=== PATIENT | male | born 1995 | race Caucasian/White ===

== ENCOUNTER 2020-10-21 08:04 | Emergency (ER) | payer OTHER ==
--- NOTE | 2020-10-21 08:38 | ED Physician Documentation ---
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 He has not had a discharge he is not concerned about the possibility of STD. He has not had this happen previously. He does not feel there is any significant swelling to the testicle.He feels a constant dull ache to the right testicle like he was hit in the testicles and this does not go away. Review of Systems Constitutional: denies: Fever Ears: denies: Ear pain Nose: denies: Congestion Throat: denies: Sore throat Respiratory: denies: Cough GI: reports: Abdominal Pain. denies: Nausea, Vomiting, Constipation, Diarrhea : reports: Testicular pain. denies: Dysuria, Frequency, Discharge, Testicular mass Skin: denies: Rash Musculoskeletal: denies: Neck pain, Back pain, Extremity pain Neurologic: denies: Generalized weakness, Focal weakness, Numbness PD PAST MEDICAL HISTORY - Present Medications Home Medications: Ambulatory Orders Medication Instructions Recorded Confirmed No Known Home Medications 10/21/20 10/21/20 - Allergies Allergies/Adverse Reactions: Allergies Allergy/AdvReac Type Severity Reaction Status Date / Time No Known Drug Allergies Allergy Verified 10/21/20 08:22 PD ED PE NORMAL - Vitals Vital signs reviewed: Yes (Normal) - General General: Alert and oriented X 3, No acute distress, Well developed/nourished - HEENT HEENT: Atraumatic, PERRL, EOMI - Respiratory Respiratory: No respiratory distress - Male Male : Other (Right testicle is without significant swelling it is tender I did attempt to detorsed the testicle which did not result in resolution of symptoms. 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, No motor deficit, No sensory deficit, Normal speech Eye Opening: Spontaneous Motor: Obeys Commands Verbal: Oriented GCS Score: 15 - Psych Psych: Normal mood, Normal affect Results - Vitals Vitals: Vital Signs - 24 hr 10/21/20 10/21/20 10/21/20 08:20 09:01 09:30 Temperature 36.7 C 36.6 C 36.6 C Heart Rate 54 L 58 L 49 L Respiratory 20 19 12 Rate Blood Pressure 124/71 124/70 114/67 O2 Saturation 100 100 99 10/21/20 10/21/20 10/21/20 10:00 10:30 11:00 Temperature Heart Rate 56 L 47 L 52 L Respiratory 16 16 14 Rate Blood Pressure 113/60 111/63 100/48 L O2 Saturation 99 98 96 10/21/20 10/21/20 11:30 12:00 Temperature 36.5 C Heart Rate 52 L 52 L Respiratory 14 12 Rate Blood Pressure 100/48 L 103/65 O2 Saturation 99 98 Oxygen O2 Source Room air - Rads (name of study) testicular ultrasound Radiology: Prelim report reviewed (Impression: No findings of testicular torsion or testicular mass. Small left varicocele. Trace bilateral hydroceles.), EMP read indepedently, See rad report PD MEDICAL DECISION MAKING - ED course Complexity details: reviewed results, re-evaluated patient, considered differential, d/w patient ED course: 25-year-old male with a sensation of pain to his testicle has no evidence of infection testicle is not specifically super tender and there is no swelling. Ultrasound findings are without evidence of torsion. Departure - Departure Disposition: 01 Home, Self Care Clinical Impression: Orchitis of right testicle Condition: Stable Instructions: ED Orchitis Follow-Up: AMBER Petty [Provider Group] Comments: Today there is no evidence of inflammation to the testicle and no evidence of torsion or loss of blood supply. The expectation is for complete resolution of your symptoms of aching testicle. If you have persistence or worsening of your symptoms return here or follow-up with your primary care doctor. Discharge Date/Time: 10/21/20 12:16
--- NOTE | 2020-10-21 11:23 | Ultrasound Report ---
PROCEDURE: Testicle w/Doppler INDICATIONS: right testicle pain TECHNIQUE: Real-time scanning was performed of the scrotum and testicles, with image documentation. Color and p ulse Doppler interrogation was performed of both testicles. COMPARISON: None. FINDINGS: Right: Testicle is normal in size at 2.2 x 3.0 x 5.9 cm, and homogenous in echotexture. Epididymis is normal in overall size and morphology. Trace hydrocele. No varicocele. Overlying scrotal skin is n ormal in thickness. Left: Testicle is normal in size at 2.1 x 3.1 x 5.2 cm, and homogeneous in echotexture. Epididymis is normal in overall size and morphology. Trace hydrocele. There is a small/mild left-sided varicocel e. Overlying scrotal skin is normal in thickness. Doppler: Color and pulse Doppler demonstrate normal and symmetric arterial flow in both testicles. IMPRESSION: No findings of testicular torsion or testicular mass. Small left varicocele. Trace bilateral hydroceles. Reviewed by: Joesph Tanner MD on 10/21/2020 11:21 AM PDT Approved by: Joesph Tanner MD on 10/21/2020 11:21 AM PDT Station ID: [id number]
[2020-10-21 12:06] VITALS: BP 103/65
== END 2020-10-21 12:16 | disposition home or self-care (01) ==
LOC: ED 08:04
DX: N45.2 Orchitis (principal)
CPT/HCPCS: 93975; 99282; 99284